=== PATIENT | male | born 1990 | race Two or more races ===

== ENCOUNTER 2024-08-29 21:03 | Emergency (ER) | payer OTHER ==
[~2024-08-29] VITALS: Ht 177.8 cm; Wt 77.3 kg
--- NOTE | 2024-08-29 21:13 | ECG ---
[facility] Test Date: 2024-08-29 Test Time: 21:09:31 Pat Name: JANELLE OBRIEN Department: er Room: Gender: M Chair: : 1990 Requested By: NATHALY TERRELL Order Number: [id number] Reading MD: Measurements Intervals [place] Rate: 84 P: -46 [place]: 112 QRS: 63 QRSD: 90 T: 36 QT: 347 QTc: 411 Interpretive Statements Sinus or ectopic atrial rhythm Borderline short [place] interval ST elev, probable normal early repol pattern Please click the below link to view image of tracing.
--- NOTE | 2024-08-29 21:45 | DVH ---
CHEST RADIOGRAPH Indication: cough Technique: Single frontal view of the chest was obtained Comparison: None FINDINGS: Lines and Tubes: None Lungs: No focal consolidation. Pleura: No effusion. No pneumothorax. Cardiomediastinal contours: Unremarkable Bones: No acute osseous abnormality. IMPRESSION: No acute cardiopulmonary disease.
--- NOTE | 2024-08-30 00:25 | ED.PDOC ---
HPI Comments Patient complaining of chest pain that started this morning. Left-sided chest radiates to the shoulder. Sharp in nature. Nothing makes it better, touching the area makes it worse. Patient states he has been under increased stress as he is going through divorce with . Patient reports no pain currently. 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 Chief Complaint: Chest Pain Time Seen by MD: 21:19 Reviewed Notes: Nurses Notes Allergies: Coded Allergies: NO KNOWN ALLERGIES (Unverified , 08/29/24) Information Source: Patient Mode of Arrival: Ambulatory Severity: Mild Past Medical History PAST MEDICAL HISTORY: Denies Surgical History: Denies all surgeries Constitutional: denies: chills, diaphoresis, fatigue, fever, malaise, sweats, weakness, others EENTM: denies: blurred vision, double vision, ear bleeding, ear discharge, ear drainage, ear pain, ear ringing, eye pain, eye redness, hearing loss, mouth pain, mouth swelling, nasal discharge, nose bleeding, nose congestion, nose pain, photophobia, tearing, throat pain, throat swelling, voice changes, others Respiratory: denies: cough, hemoptysis, orthopnea, SOB at rest, shortness of breath, SOB with excertion, stridor, wheezing, others Cardiovascular: reports: chest pain; denies: dizzy spells, diaphoresis, Dyspnea on exertion, edema, irregular heart beat, left arm pain, lightheadedness, palpi tations, PND, syncope, others Gastrointestinal: denies: abdomen distended, abdominal pain, blood streaked bowels, constipated, diarrhea, dysphagia, difficulty swallowing, hematemesis, melena, nausea, poor appetite, poor fluid intake, rectal bleeding, rectal pain, vomiting, others Genitourinary: denies: burning, dysuria, flank pain, frequency, hematuria, incontinence, penile discharge, penile sore, pain, testicle pain, testicle swelling, urgency, others Neurological: denies: dizziness, fainting, headache, left sided numbness, left sided weakness, numbness, paresthesia, pre-existing deficit, right sided numbness, right sided weakness, seizure, speech problems, tingling, tremors, weakness, others Musculoskeletal: denies: back pain, gout, joint pain, joint swelling, muscle pain, muscle stiffness, neck pain, others Physical Exam General Appearance: No Apparent Distress, Normal HEENT: Normal ENT Inspection, Pharynx Normal, TMs Normal Neck: Full Range of Motion, Non-Tender, Normal, Normal Inspection Respiratory: Chest Non-Tender, Lungs Clear, No Accessory Muscle Use, No Respiratory Distress, Normal Breath Sounds Cardiovascular: No Edema, No JVD, No Murmur, No Gallop, Normal Peripheral P ulses, Regular Rate/Rhythm, Other (Chest pain reproducible with palpation) Breast Exam: Deferred Gastrointestinal: No Organomegaly, Non Tender, No Pulsatile Mass, Normal Bowel Sounds, Soft Genitalia: Deferred Pelvic: Deferred Rectal: Deferred Extremities: No calf tenderness, Normal capillary refill, Normal inspection, Normal range of motion, Non-tender, No pedal edema Musculoskeletal : Apperance: Normal Neurologic: Alert, contract negotiation specialist II-XII nml as Tested, No Motor Deficits, Normal Affect, Normal Mood, No Sensory Deficits Cerebellar Function: Normal Reflexes: Normal Skin: Dry, Normal Color, Warm Lymphatic: No Adenopathy Was a procedure done? Was a procedure done?: No CP Differential Dx Differential Diagnosis: Angina, Anxiety / Panic Attack, [place] X-Ray, Labs, Meds, VS Vital Signs Date Time Temp Pulse Resp B/P (MAP) Pulse Ox O2 Delivery O2 Flow Rate FiO2 08/29/24 22:02 93 08/29/24 21:09 84 08/29/24 21:05 98.5 91 18 146/77 (100) 95 Lab Test 08/29/24 22:10 08/29/24 21:15 Range/Units Troponin I High Sensitivity 7 7 </=54 ng/L X-Ray, Labs, Meds, VS Comment X-rays reviewed with no acute disease process , pending Radiology review Labs reviewed by this provider no acute disease process Vital signs reviewed Time of 1ST Reevaluation: 00:24 Reevaluation 1ST: Improved Patient Education/Counseling: Diagnosis, Treatment, Need For Follow Up (Follow- up with PCP in the next 24-48 hours.) Family Education/Counseling: Diagnosis Departure 1 Departure Time of Disposition: 00:23 Impression: Primary Impression: Musculoskeletal chest pain Disposition: 01 HOME / SELF CARE / HOMELESS Condition: Fair Discharged With: Self (Catheterization at) Critical Care Note Critical Care Time?: No Stability Stability form required: No Heart Score Heart Score: Heart Score Response (Comments) Value History Slightly Suspicious 0 EKG Normal 0 Age <45 0 Risk Factors No known risk factors 0 Troponin Normal limit 0 Total 0 ATIYA DIMAS Aug 30, 2024 00:25
[2024-08-30 01:28] VITALS: BP 159/101; TEMP 98.2
[2024-08-30 01:31] VITALS: PULSE 98; RESP 16; O2SAT 98
--- NOTE | 2024-08-30 10:25 | ECG ---
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
== END 2024-08-30 01:40 | disposition home or self-care (01) ==
LOC: ER 21:03
DX: R07.89 Other chest pain (principal)
CPT/HCPCS: 36415; 71045; 84484; 93005